=== PATIENT | male | born 1970 | race Caucasian/White ===

== ENCOUNTER 2019-02-18 01:23 | Emergency (ER) | payer SELFPAY ==
[~2019-02-18] VITALS: Ht 182.9 cm; Wt 90.0 kg
[2019-02-18 01:25] VITALS: BP 134/81
[2019-02-18] MEDS ORDERED: HYDROmorphone 1 MG/ML, 1ML INJ IM ONE (01:30)
[2019-02-18] MEDS ORDERED: HYDROmorphone 1 MG/ML, 1ML VIAL ONE (01:32)
--- NOTE | 2019-02-18 01:40 | NUR ---
C/O "PAIN IN MY RIGHT NUT" 01/07 THAT STARTED YESTERDAY
--- NOTE | 2019-02-18 01:59 | NUR ---
BREAK RN-PT AT ULTRASOUND
[2019-02-18] MEDS ORDERED: PLEASE ENTER ALLERGIES MC SCH (02:00)
--- NOTE | 2019-02-18 02:08 | NUR ---
PT RESTING ON GURENY, MONITORS REAPPLIED, CALL LIGHT WITHIN REACH. PROVIDED PT WITH URINE CUP FOR SAMPLE
--- NOTE | 2019-02-18 02:31 | NUR ---
PT REPORTS PAIN HAS IMPROVED FROM 01/07 TO 410
[2019-02-18 02:53] LABS: AMPHETAMINE SCREEN, URINE Positive (Negative); BARBITURATE SCREEN, URINE Negative (Negative); BENZODIAZEPINE SCREEN, URINE Negative (Negative); CANNABINOID SCREEN, URINE Negative (Negative); COCAINE SCREEN, URINE Negative (Negative); METHADONE SCREEN, URINE Negative (Negative); OPIATE SCREEN, URINE Negative (Negative)
[2019-02-18 03:02] LABS: CULTURE INDICATED? YES; MICROSCOPIC INDICATED
[2019-02-18] MEDS ORDERED: IBUPROFEN 800 MG TABLET ONE (03:50)
[2019-02-18] MEDS ORDERED: IBUPROFEN 800 MG TABLET PO ONE (04:00)
--- NOTE | 2019-02-18 04:18 | NUR ---
PT OFFERED A [employer] CAB VOUCHER. PT REFUSED VOUCHER. PT STATES HE WILL WALK.
--- NOTE | 2019-02-18 04:31 | NUR ---
PT REFUSED DISCHARGE PAPERWORK AND LEFT WITHOUT GOING TO THE DISCHARGE DESK. PT FRUSTRATED WITH ME BECUASE I COULD NOT FIND THE ADDRESS FOR THE [place]. PT DOES NOT KNOW THE ADDRESS AND STATED THAT HE DIDNT WANT A VOUCHER BECAUSE HE DOESNT KNOW THE ADDRESS.
== END 2019-02-18 04:29 | disposition home or self-care (01) ==
LOC: EDBD 01:23 → ED 04:23
DX: N45.1 Epididymitis (principal); N30.01 Acute cystitis with hematuria; F15.920 Other stimulant use, unspecified with intoxication, uncomplicated; Z21 Asymptomatic human immunodeficiency virus [HIV] infection status
CPT/HCPCS: 76870; 80307; 81001; 87086; 96372; 99284; J1170

== ENCOUNTER 2020-12-13 10:20 | Emergency (ER) | payer MEDICAID ==
[~2020-12-13] VITALS: Ht 182.9 cm; Wt 95.0 kg
--- NOTE | 2020-12-13 10:44 | NUR ---
EKG COMPLETED IN TRIAGE
[2020-12-13 11:43] LABS: ALANINE AMINOTRANSFERASE 19 U/L (12-78); ANION GAP 8 mmol/L (5-15); CHLORIDE 105 mmol/L (98-107); CREATININE 1.48 mg/dL (0.7-1.3)
[2020-12-13 11:48] LABS: ALKALINE PHOSPHATASE 92 U/L (45-117); BILIRUBIN,TOTAL 0.9 mg/dL (0.2-1.0); TOTAL PROTEIN 8.7 g/dL (6.4-8.2); TROPONIN I < 0.015 ng/mL (0.000-0.045)
[2020-12-13 12:22] LABS: BASOPHILS % (AUTO) 2 % (0-1); EOSINOPHILS % (AUTO) 5 % (1-7); LYMPHOCYTES % (AUTO) 27 % (22-44); MEAN CORPUSCULAR HEMOGLOBIN 27.9 pg (27.5-34.5); MEAN CORPUSCULAR HGB CONC 33.5 g/dL (33.2-36.2); MEAN PLATELET VOLUME 7.4 fL (7.4-10.4); MONOCYTES % (AUTO) 9 % (2-9); NEUTROPHILS % (AUTO) 57 % (42-75); PLATELET COUNT 328 x10^3/uL (130-400); RED BLOOD COUNT 5.29 x10^6/uL (4.38-5.82); RED CELL DISTRIBUTION WIDTH 15.5 % (9.4-14.8)
[2020-12-13 14:45] VITALS: BP 122/88
== END 2020-12-13 15:08 | disposition home or self-care (01) ==
LOC: ED 14:58
DX: R07.2 Precordial pain (principal)
CPT/HCPCS: 36415; 71045; 80053; 83690; 84484; 85025; 93005; 99285